=== PATIENT | female | born 2000 | race Caucasian/White ===

== ENCOUNTER 2019-09-03 13:54 | Inpatient (IN) | payer MEDICAID ==
[~2019-09-03] VITALS: Ht 167.6 cm; Wt 88.0 kg
[2019-09-05] MEDS ORDERED: LACTATED RINGERS 1,000 ML IV SCH ×2 (02:21→02:45)
[2019-09-05] MEDS ORDERED: DEXT 5%/LR + PITOCIN 20UNITS/L 1,000 ML IV SCH ×2 (02:29→06:22)
[2019-09-05] MEDS ORDERED: CARBOPROST TROMETHAMINE 250 MCG/ML AMPUL IM PRN (02:30)
[2019-09-05] MEDS ORDERED: LIDOCAINE HCL 1% 20ML VIAL (Pyxis) INJ INFIL SCH (02:30)
[2019-09-05] MEDS ORDERED: NALOXONE HCL 0.4 MG/ML 1ML VIAL IM PRN (02:30)
[2019-09-05] MEDS ORDERED: METHYLERGONOVINE MALEATE 0.2 MG/ML IM PRN (02:30)
[2019-09-05] MEDS ORDERED: BUTORPHANOL TARTRATE 2 MG/ML VIAL IV PRN (02:30)
[2019-09-05 03:06] LABS: CLARITY URINE CLEAR (CLEAR); COLOR URINE YELLOW (YELLOW); KETONES URINE NEGATIVE (NEGATIVE); LEUKOCYTE ESTERASE URINE NEGATIVE (NEGATIVE); NITRITE URINE NEGATIVE (NEGATIVE); OCCULT BLOOD URINE NEGATIVE (NEGATIVE); PH URINE 7.5 (4.5-8.0); PROTEIN URINE NEGATIVE (NEGATIVE); SPECIFIC GRAVITY URINE 1.016 (1.005-1.030); UROBILINOGEN URINE 0.2 E.U./dL (0.2-1.0)
[2019-09-05 03:10] LABS: CHLORIDE 106 mEq/L (98-107)
[2019-09-05 03:14] LABS: BASOPHILS % 0.3 % (0.0-2.0); EOSINOPHILS % 0.4 % (0.0-5.0); HEMATOCRIT. 34.8 % (36.0-48.0); HEMOGLOBIN. 11.9 g/dL (12.0-16.0); LYMPHOCYTES % 16.1 % (20.0-50.0); MEAN CORPUSCULAR HEMOGLOBIN 30.4 pg (28.0-32.0); MEAN CORPUSCULAR VOLUME 88.7 fL (81.0-99.0); MEAN PLATELET VOLUME 8.4 fl (7.4-10.4); MONOCYTES % 6.7 % (2.0-8.0); NEUTROPHILS % 76.5 % (40.0-76.0); PLATELET 284 x1000/uL (130-400); RED BLOOD CELL COUNT 3.92 mill/uL (4.2-5.4); RED CELL DISTRIBUTION WIDTH 13.6 % (11.6-14.6)
[2019-09-05 03:21] LABS: *AMPHETAMINES SCREEN URINE NEGATIVE (NEGATIVE); *BARBITURATES SCREEN URINE NEGATIVE (NEGATIVE); *BENZODIAZEPINES SCREEN URINE NEGATIVE (NEGATIVE); *COCAINE SCREEN URINE NEGATIVE (NEGATIVE)
[2019-09-05 03:23] LABS: CANNABINOID URINE SCREEN NEGATIVE (NEGATIVE); METHADONE URINE SCREEN NEGATIVE (NEGATIVE); OPIATES URINE SCREEN NEGATIVE (NEGATIVE); PHENCYCLIDINE URINE SCREEN NEGATIVE (NEGATIVE)
[2019-09-05] MEDS ORDERED: PNV91TAB6 PO (03:38)
[2019-09-05 04:13] LABS: HEPATITIS B SURFACE ANTIGEN NEGATIVE
[2019-09-05] MEDS ORDERED: LANOLIN OINT 7GM TUBE TOP PRN (06:30)
[2019-09-05] MEDS ORDERED: INFLUENZA VIRUS VACCINE(AFLURIA) 0.5ML SYR IM ONE (06:30)
[2019-09-05] MEDS ORDERED: RHO(D) IMMUNE GLOBULIN 300 MCG/SYR IM PRN (06:30)
[2019-09-05] MEDS ORDERED: HEMORRHOIDAL SUPP PR PRN (06:30)
[2019-09-05] MEDS ORDERED: GLYCERIN/WITCH HAZEL LEAF MEDICATED PAD TOP PRN (06:30)
[2019-09-05] MEDS ORDERED: BISACODYL 10MG SUPP PR PRN (06:30)
[2019-09-05] MEDS ORDERED: BENZOCAINE/LANOLIN/ALOE VERA SPRAY TOP PRN (06:30)
[2019-09-05] MEDS ORDERED: TETANUS, DIPHTHERIA, PERTUSSIS VAC/PF 0.5ML (>7YR OLD) IM ONE (06:30)
[2019-09-05] MEDS ORDERED: IBUPROFEN 400MG TABLET PO PRN (06:30)
[2019-09-05] MEDS ORDERED: ACETAMINOPHEN WITH CODEINE 300/30MG TABLET PO PRN (06:30)
[2019-09-05] MEDS ORDERED: DIPHENHYDRAMINE 25MG CAPSULE PO PRN (06:30)
[2019-09-05 08:30] VITALS: BP 109/69
[2019-09-05 09:00] VITALS: BP 114/65
[2019-09-05] MEDS: PRENATAL VIT/FE FUMARATE/FA TABLET PO SCH (09:12)
[2019-09-05 16:20] VITALS: BP 109/65
[2019-09-05] MEDS: DOCUSATE SODIUM 100MG CAPSULE PO SCH (20:55)
[2019-09-05 22:00] VITALS: BP 115/71
[2019-09-06 05:57] VITALS: BP 112/70
[2019-09-06] MEDS: IBUPROFEN 800MG TABLET PO PRN ×3 (06:50→21:16)
[2019-09-06 06:55] LABS: BASOPHILS % 0.6 % (0.0-2.0); HEMOGLOBIN. 10.4 g/dL (12.0-16.0); LYMPHOCYTES % 19.4 % (20.0-50.0); MEAN CORPUSCULAR HEMOGLOBIN 30.2 pg (28.0-32.0); MONOCYTES % 5.9 % (2.0-8.0); NEUTROPHILS % 73.1 % (40.0-76.0); PLATELET 255 x1000/uL (130-400); RED BLOOD CELL COUNT 3.45 mill/uL (4.2-5.4); RED CELL DISTRIBUTION WIDTH 13.6 % (11.6-14.6)
[2019-09-06 07:34] VITALS: BP 110/55
[2019-09-06] MEDS: FERROUS SULFATE 325MG TABLET PO SCH ×3 (07:56→18:01)
[2019-09-06] MEDS: PRENATAL VIT/FE FUMARATE/FA TABLET PO SCH (07:56)
[2019-09-06 16:06] VITALS: BP 106/63
[2019-09-06 19:20] VITALS: BP 113/62
[2019-09-06] MEDS: DOCUSATE SODIUM 100MG CAPSULE PO SCH (21:15)
[2019-09-07] VITALS: BP 115/65
[2019-09-07] MEDS: IBUPROFEN 800MG TABLET PO PRN (06:17)
[2019-09-07 07:45] VITALS: BP 112/75
[2019-09-07] MEDS: PRENATAL VIT/FE FUMARATE/FA TABLET PO SCH (10:16)
[2019-09-07] MEDS: FERROUS SULFATE 325MG TABLET PO SCH (10:16)
== END 2019-09-07 13:30 | disposition home or self-care (01) | DRG 560 ==
LOC: 8 EST LDRP 09-05 01:43 → OBSVTOIN 09-05 01:43 → 8EST 09-05 08:05
PROVIDERS: ADMIT Specialist; ATTEND Specialist
PROC: 10E0XZZ Delivery of Products of Conception, External Approach (ICD-10-PCS; principal; 2019-09-05)
PROC: 0W8NXZZ Division of Female Perineum, External Approach (ICD-10-PCS; 2019-09-05)
DX: O26.893 Other specified pregnancy related conditions, third trimester (principal); Z37.0 Single live birth; Z3A.40 40 weeks gestation of pregnancy; Z67.31 Type AB blood, Rh negative
CPT/HCPCS: 36415; 80305; 81003; 84550; 85384; 86592; 86703; 86762; 86850; 86900; 87340; 90686; 90715; 99281; G0378; J0595; J2590; J3490; J7120

== ENCOUNTER 2019-09-09 13:27 | Emergency (ER) | payer MEDICAID ==
[~2019-09-09] VITALS: Ht 167.6 cm; Wt 82.0 kg
[~2019-09-09 13:27] MED LIST: PNV91TAB6 PO
[2019-09-09] MEDS ORDERED: ACETAMINOPHEN WITH CODEINE 300/30MG TABLET PO ONE (15:30)
[2019-09-09] MEDS ORDERED: POVIDONE-IODINE 10% TOPICAL SOLN 240ML TOP ONE (15:45)
[2019-09-09] MEDS ORDERED: LIDOCAINE HCL 1% 20ML VIAL (Pyxis) INJ INFIL ONE (15:45)
[2019-09-09 16:56] VITALS: BP 121/73
== END 2019-09-09 16:56 | disposition home or self-care (01) ==
LOC: ER 13:27
DX: T81.30XA Disruption of wound, unspecified, initial encounter (principal); X58.XXXA Exposure to other specified factors, initial encounter
CPT/HCPCS: 81025; 99283; A4246; J3490